=== PATIENT | female | born 1955 | race Caucasian/White ===

== ENCOUNTER → 2019-12-07 14:59 | Outpatient (CLI) | payer BC, SELFPAY ==
--- NOTE | 2019-12-07 15:17 | XR_ITS ---
PROCEDURE: XR CHEST 2V CLINICAL HISTORY: SOB Shortness of breath COMPARISON: No exams were available for comparison FINDINGS: There is mild cardiomegaly without failure. The lungs are clear without infiltrates, suspicious nodules, or pleural effusions. No acute bony abnormalities. IMPRESSION: No acute findings. Dictated by: Kenneth Strong MD 12/07/2019 18:25 Electronically signed by Kenneth Strong MD in [place] 12/07/2019 18:25
== END ==
PROVIDERS: PCP Family Medicine; Visit Provider Family Medicine
DX: R06.02 Shortness of breath (principal)
CPT/HCPCS: 71046

== ENCOUNTER → 2020-08-10 15:07 | Outpatient (CLI) | payer BC, SELFPAY ==
--- NOTE | 2020-08-10 15:16 | XR_ITS ---
PROCEDURE: XR CHEST PORTABLE CLINICAL HISTORY: COVID OUTPATIENT Cough and fatigue COMPARISON: CR XR CHEST 2V from 12/07/2019 FINDINGS: The cardiomediastinal silhouette and pulmonary vascularity are within normal limits. The lungs are clear without infiltrates, suspicious nodules, or pleural effusions. No acute bony abnormalities. IMPRESSION: No acute findings. Dictated by: Kenneth Strong MD 08/10/2020 15:44 Kenneth Storng MD in [place] 08/10/2020 15:44
== END ==
PROVIDERS: PCP Nurse Practitioner Family; Visit Provider Nurse Practitioner Family
DX: Z20.822 Contact with and (suspected) exposure to COVID-19 (principal); U07.1 COVID-19; R06.02 Shortness of breath
CPT/HCPCS: 71045; U0003

== ENCOUNTER 2020-08-14 14:35 | Observation (INO) | payer BC, SELFPAY ==
[2020-08-14] VITALS (8 sets, daily range): BP systolic 102–141; BP diastolic 52–89; PULSE 72–87; RESP 20–24; TEMP 36.7–36.9; O2SAT 94–96; BMI 52.0; BMI 40.8
--- NOTE | 2020-08-14 15:08 | XR_ITS ---
PROCEDURE: XR CHEST PORTABLE CLINICAL HISTORY: covid Cough and fever COMPARISON: CR XR CHEST 2V from 12/07/2019 CR XR CHEST PORTABLE from 08/10/2020 FINDINGS: There is mild cardiomegaly without failure. Multifocal small areas of patchy density in the right upper and right lower lobe are present consistent with pneumonia. No acute bony abnormalities. IMPRESSION: Small multifocal areas of right-sided pneumonia Dictated by: Kenneth Strong MD 08/14/2020 16:20 Kenneth Strong MD in [place] 08/14/2020 16:20
--- NOTE | 2020-08-14 15:13 | HMH.EDGENADL ---
ED Disposition Clinical Impression: Pneumonia due to COVID-19 virus, Hypoxia, Hypoglycemia Disposition: Admitted As Inpatient Condition on Discharge: Serious Referrals: Tejinder Roca MD [Primary Care Provider] - - Critical Care Critical Care Time: Yes Attestation: On , the high probability of a clinically significant, sudden or life threatening deterioration of the following system(s) required my full and direct attention, intervention and personal management. The time I documented below is in addition to time spent performing reported procedures but includes the following listed in this critical care notation. Total Critical Care Time: 30 Vital system(s) involved:: Metabolic Failure, Respiratory Failure My critical care processes included: Assessment & monitoring of V/S, Initial and Re-exams, Data Review/Interpretation, Coordinating Care, Medication Orders and management, Documentation Medical Decision Making - Ari Inquiry Pt receiving controlled substance: No Vital Signs: 08/14/20 14:36 08/14/20 15:31 08/14/20 16:01 Temperature 98.4 F Temperature Source Oral Pulse Rate [Right Brachial] 87 80 75 Respiratory Rate 20 Blood Pressure [Right Arm] 120/89 133/61 102/66 L Blood Pressure Mean [Right Arm] 99 85 78 Blood Pressure Source [Right Arm] Automatic Cuff Automatic Cuff Automatic Cuff Blood Pressure Position [Right Arm] Sitting Sitting Sitting 02 Sat by Pulse Oximetry 94 L 95 96 Oxygen Delivery Method Room Air Nasal Cannula Nasal Cannula Oxygen Flow Rate (LPM) 2 2 08/14/20 16:31 Temperature Temperature Source Pulse Rate [Right Brachial] 75 Respiratory Rate Blood Pressure [Right Arm] 127/55 L Blood Pressure Mean [Right Arm] 79 Blood Pressure Source [Right Arm] Automatic Cuff Blood Pressure Position [Right Arm] Sitting 02 Sat by Pulse Oximetry 96 Oxygen Delivery Method Nasal Cannula Oxygen Flow Rate (LPM) 2 - Lab Data Lab Results 08/14/20 15:10: WBC 4.9, RBC 4.36, Hgb 11.8 L, Hct 37.8, MCV 86.9, MCH 27.0, MCHC 31.1 L, RDW 16.2, Plt Count 324, MPV 7.7, Neut % (Auto) 73.1, Lymph % (Auto) 21.5, Solano % (Auto) 4.8, Eos % (Auto) 0.1, Baso % (Auto) 0.5, Neut # (Auto) 3.6, Lymph # (Auto) 1.1, Solano # (Auto) 0.2, Eos # (Auto) 0.0, Baso # (Auto) 0.0 08/14/20 15:10: Sodium 144, Potassium 3.8, Chloride 108 H, Carbon Dioxide 29, Anion Gap 10.8, BUN 21 H, Creatinine 0.90, Estimated Creat Clear 43, Estimated GFR 63, Est GFR ( Amer) 77, Glucose 38 L*, Calcium 9.2, Total Bilirubin 0.4, AST 27, ALT 14, Alkaline Phosphatase 69, Total Protein 7.7, Albumin 3.9, Globulin 3.8 H, Albumin/Globulin Ratio 1.0 L 08/14/20 15:10: Lactate < 0.5 L 08/14/20 15:10: Procalcitonin 0.078 Result diagrams: 08/14/20 15:10 08/14/20 15:10 Orders (Tests/Meds): ED MEDICATIONS Discontinued Medications Generic Name Dose Route Start Last Admin Trade Name Freq PRN Reason Stop Dose Admin Dextrose 50 ml 08/14/20 15:56 08/14/20 16:09 Dextrose 50% 50ml Syringe (Crash Cart) IVP 08/14/20 15:57 50 ml ONCE ONE Administration ORDERS Category Date Time Status Blood Culture Stat Micro 08/14/20 15:10 Received - Radiology Data #1 Image(s): Chest Image Reviewed: Yes I reviewed the patient's radiology image, Yes I have reviewed radiologist's interpretation PROCEDURE: XR CHEST PORTABLE CLINICAL HISTORY: covid Cough and fever COMPARISON: CR XR CHEST 2V from 12/07/2019 CR XR CHEST PORTABLE from 08/10/2020 FINDINGS: There is mild cardiomegaly without failure. Multifocal small areas of patchy density in the right upper and right lower lobe are present consistent with pneumonia. No acute bony abnormalities. IMPRESSION: Small multifocal areas of right-sided pneumonia Dictated by: Kenneth Strong MD 08/14/2020 16:20 Kenneth Strong MD in [place] 08/14/2020 16:20 - Physician Consults Physician Consulted: Vanna Time: 16:45 Reason -: Admission Comment/Response: Agrees to admit the giana
[2020-08-14 15:27] LABS: Basophils % 0.5 % (0.1-2.0); Eosinophils % 0.1 % (0.1-12.0); Hematocrit 37.8 % (37.0-47.0); Hemoglobin 11.8 g/dL (12.2-16.2); Lymphocytes # 1.1 K/mm3 (0.7-4.5); Lymphocytes % 21.5 % (10-50); Mean Corpuscular HGB Conc 31.1 g/dL (31.8-35.4); Mean Corpuscular Volume 86.9 fl (81-99); Mean Platelet Volume 7.7 fl (7.4-10.4); Monocytes # 0.2 K/mm3 (0.1-1.0); Monocytes % 4.8 % (1.7-9.3); Neutrophils # 3.6 K/mm3 (1.8-7.8); Neutrophils % 73.1 % (37.0-80.0); Platelet Count 324 K/mm3 (142-424); Red Blood Count 4.36 M/mm3 (4.20-5.40); Red Cell Distribution Width 16.2 % (11.5-17.5); White Blood Count 4.9 K/mm3 (4.8-10.8)
[2020-08-14 15:44] LABS: Chloride 108 mmol/L (98-107); Sodium 144 mmol/L (136-145)
[2020-08-14 15:45] LABS: Potassium 3.8 mmoL/L (3.5-5.1)
[2020-08-14 15:47] LABS: Alanine Aminotransferase 14 U/L (12-78); Albumin Level 3.9 g/dl (3.5-5.0); Alkaline Phosphatase 69 U/L (38-126); Anion Gap 10.8 mEq/L (5-15); Aspartate Amino Transferase 27 U/L (14-36); Bilirubin,Total 0.4 mg/dl (0.2-1.3); Blood Urea Nitrogen 21 mg/dl (7-17); Carbon Dioxide 29 mmol/L (22.0-30.0); Creatinine Clearance Estimated 43 mL/min (50-200); Estimated Glomerular Filt Rate 63 ml/min (>60); GFR (African American) 77 ML/MIN (>60); Globulin 3.8 g/dL (1.3-3.2); Total Protein,Serum 7.7 g/dl (6.3-8.2)
[2020-08-14 15:48] LABS: Calcium 9.2 mg/dl (8.4-10.2)
[2020-08-14 15:55] LABS: Lactic Acid < 0.5 mmol/L (0.7-2.1)
[2020-08-14 15:57] LABS: Glucose 38 mg/dl (74-100)
--- NOTE | 2020-08-14 15:59 | PC.NURSE ---
NotifiedMD of critical glucose. New orders given at this time
--- NOTE | 2020-08-14 16:22 | PC.NURSE ---
Dr Abelino silva.
[2020-08-14 16:32] LABS: Procalcitonin 0.078 ng/mL (0.0-2.0)
--- NOTE | 2020-08-14 16:37 | PC.NURSE ---
Dr Prabhakar returned call for Dr Roca.
--- NOTE | 2020-08-14 17:51 | PC.NURSE ---
called the floor to let them know pt was ready for admission
--- NOTE | 2020-08-14 18:15 | PC.NURSE ---
Pt arrived to the floor at this time.
--- NOTE | 2020-08-14 20:00 | PC.NURSE ---
upon arrival to floor fsbs checked, it was 46, rechecked as per protocol and it was 48. patient ate some manderin oranges she had brought from home. recheck of fsbs revealed it to be at 106. patient remained asymptmatic. md radiation control health physicist was relayed this with no new orders. patient also requesting her benzonotate to be reordered and md stated it was okay to order this and have protonix given tonight.
[2020-08-15] VITALS (7 sets, daily range): BP systolic 126–152; BP diastolic 64–94; PULSE 64–77; RESP 18–22; TEMP 36.2–36.7; O2SAT 90–95; BMI 40.5; BMI 40.4
--- NOTE | 2020-08-15 05:21 | PC.NURSE ---
Pt A&O x4 and has slept on and off through the night. Only c/o were of trouble sleeping for which pt requested tylenol and it was given per OCT. Pt has been on 3L NC and was titrated down to 2L. sats have been in the mid 90s. No c/o of trouble breathing. Lung sounds are diminished throughout with crackles in lower bases. Pt has been ambulating to the bathroom with stand-by assist and has tolerated well. Pt stated her biggest problem was anxiety and the fear that she will need to be intubated and become very ill due to her having COVID. Pt has tolerated diet well. VSS, call light in reach, no concerns at this time.
[2020-08-15 06:22] LABS: POC Glucose,Bedside 106 (70-110)
[2020-08-15 06:22] LABS: POC Glucose,Bedside 100 (70-110)
[2020-08-15 06:43] LABS: POC Glucose,Bedside 127 (70-110)
[2020-08-15 06:52] LABS: Basophils % 0.6 % (0.1-2.0); Hematocrit 35.3 % (37.0-47.0); Lymphocytes # 0.6 K/mm3 (0.7-4.5); Lymphocytes % 14.5 % (10-50); Mean Corpuscular HGB Conc 31.1 g/dL (31.8-35.4); Mean Corpuscular Hemoglobin 27.7 pg (27.0-31.2); Mean Corpuscular Volume 89.2 fl (81-99); Mean Platelet Volume 8.8 fl (7.4-10.4); Monocytes # 0.2 K/mm3 (0.1-1.0); Monocytes % 4.1 % (1.7-9.3); Neutrophils # 3.4 K/mm3 (1.8-7.8); Neutrophils % 80.8 % (37.0-80.0); Platelet Count 282 K/mm3 (142-424); Red Blood Count 3.96 M/mm3 (4.20-5.40); White Blood Count 4.2 K/mm3 (4.8-10.8)
--- NOTE | 2020-08-15 07:06 | HMH.HP ---
*Admission Date: 08/14/20 *Chief complaint: Shortness of breath *History of present illness: 64-year-old female with fibromyalgia and diabetes with neuropathy presented to the emergency department after being seen in the office for follow-up on diagnosis of COVID-19 infection. Patient was reporting increasing shortness of breath and on O2 sat in the office patient was 84% on room air. Patient was sent to the emergency department for a more rapid evaluation. In the ER patient had normal O2 sats on room air with the lowest recorded sat of 92%. However she continued to complain of shortness of breath and supplemental oxygen was applied which raised the patient's sats to the high 90s. Further work-up revealed small infiltrates in the right lung consistent with COVID-19 pneumonia. Patient was then admitted and has been started on remdesivir, dexamethasone. This morning she reports feeling about the same. She would like to get out of bed and sit in a recliner due to the neuropathy in her feet. Patient admitted to nursing staff she was very afraid of respiratory failure requiring intubation [facility] History I have reviewed the patient's past medical history: Yes Medical History: Reports:: Diabetes Mellitus Type 2 *Have you ever received a pneumonia vaccine?: Yes *Have you received a flu vaccine this season?: Yes Comment:: Diabetic neuropathy: Other Surgeries: Yes: Cholecystectomy, - *Social History Last grade of school completed: High school graduate Alcohol Intake: never *Occupational Status:: unemployed Housing: house Household Members: spouse, children *Travel in the last 8 weeks: None Family Hx:: Heart Attack, Hyperlipidemia, Hypertension Review of Systems - Constitutional Denies body ache(s), Denies chills, Denies lack of energy, Denies malaise - *Cardiovascular Denies chest pain, Denies chest pain at rest, Denies chest pain with activity - *Respiratory Reports shortness of breath, Reports shortness of breath with activity, Denies change in phlegm color, Denies chest congestion, Denies cough - *Gastrointestinal Denies abdominal pain, Denies belching, Denies loose stools - *Musculoskeletal Denies abnormal walking, Denies joint pain, Denies decreased muscle mass - Integumentary/Breasts Reports hair loss - Psychiatric Denies abnormal sleep pattern, Denies lack of enjoyment, Denies anxiety Meds Home Medications Medication Instructions Recorded Confirmed Type Benzonatate [Benzonatate 200mg Cap] 200 mg PO TID 08/14/20 08/14/20 History Ergocalciferol (Vitamin D2) 1,250 mcg PO WEEKLY 08/14/20 08/14/20 History [Vitamin D2] Fenofibrate Nanocrystallized 145 mg PO DAILY 08/14/20 08/14/20 History [Fenofibrate] Fexofenadine HCl [Barbra Allergy] 60 mg PO DAILY 08/14/20 08/14/20 History Fluticasone/Vilanterol [Breo 1 puff INHALATION DAILY 08/14/20 08/14/20 History Ellipta 200-25 Mcg INH] Furosemide [Furosemide 40MG tAB*] 40 mg PO BID 08/14/20 08/14/20 History Insulin Aspart Prot/Insuln Asp 80 units SQ BID 08/14/20 08/14/20 History [Novolog Mix 70/30 Flexpen 100 Units/mL 3mL] Pantoprazole Sodium 40 mg PO DAILY 08/14/20 08/14/20 History Potassium Chloride [Klor-con 20 20 meq PO DAILY 08/14/20 08/14/20 History mEq tablet] carvediloL [Carvedilol 25mg Tab] 25 mg PO BID 08/14/20 08/14/20 History Allergies Allergy/AdvReac Type Severity Reaction Status Date / Time Cefaclor Allergy Unknown Uncoded 07/21/17 14:38 Cephalosporin Allergy Unknown Uncoded 07/21/17 14:38 Exam Vital signs and Labs for Last 24 Hours: Temp Pulse Resp BP Pulse Ox 98.0 F 70 18 146/68 H 95 08/15/20 04:00 08/15/20 04:00 08/15/20 04:00 08/15/20 04:00 08/15/20 04:00 Laboratory Results - last 24 hr 08/14/20 15:10: WBC 4.9, RBC 4.36, Hgb 11.8 L, Hct 37.8, MCV 86.9, MCH 27.0, MCHC 31.1 L, RDW 16.2, Plt Count 324, MPV 7.7, Neut % (Auto) 73.1, Lymph % (Auto) 21.5, Dane % (Auto) 4.8, Eos % (Auto) 0.1, Baso %
[2020-08-15 07:28] LABS: Anion Gap 14.2 mEq/L (5-15); Blood Urea Nitrogen 17 mg/dl (7-17); Calcium 8.6 mg/dl (8.4-10.2); Carbon Dioxide 23 mmol/L (22.0-30.0); Chloride 108 mmol/L (98-107); Creatinine Clearance Estimated 54 mL/min (50-200); Estimated Glomerular Filt Rate 85 ml/min (>60); GFR (African American) 102 ML/MIN (>60); Glucose 130 mg/dl (74-100); Potassium 5.2 mmoL/L (3.5-5.1); Sodium 140 mmol/L (136-145)
--- NOTE | 2020-08-15 08:03 | PC.WOUNDNOTE ---
Wound Location: BLE Pain and/or tenderness Y/N: Tender, dry, scaly, edema
--- NOTE | 2020-08-15 08:05 | PC.WOUNDNOTE ---
Wound Location: coccyx Length: Width: Inflammation/swelling Y/N: Pain and/or tenderness Y/N: NO Color: Dark Purple Mann Red
--- NOTE | 2020-08-15 08:07 | PC.WOUNDNOTE ---
Wound Location: Under left breast Inflammation/swelling Y/N: Pain and/or tenderness Y/N: N Exudate: Seropurulent Purulent Color: Cloudy/milky Red Yellow Odor Y/N: Y
--- NOTE | 2020-08-15 08:11 | PC.WOUNDNOTE ---
Wound Location: ABD FOLD, Groin FOLDS Red/Excoriated Odor Y/N: y
--- NOTE | 2020-08-15 08:45 | HMH.PHAVTE ---
[facility] Pharmacy VTE Monitoring - Patient Demographics Admission date: 08/15/20 Report Date: 08/15/20 Time: 08:45 Allergies/Adverse Reactions: Patient Allergies Cephalosporins Allergy (Unknown, Verified 08/15/20 08:27) Unknown allergy reaction Height: 1.7 m Weight: 117.084 kg Patient Problems: Current Active Problems Pneumonia due to COVID-19 virus (Acute) Hypoxia (Acute) Hypoglycemia (Acute) Diabetes mellitus type 2, uncontrolled (Acute) Morbid obesity (Acute) Diabetic neuropathy (Acute) Fibromyalgia (Acute) - VTE Risk Labs: VTE Related Lab Results Hgb 11.0 g/dL (12.2-16.2) L 08/15/20 05:22 Hct 35.3 % (37.0-47.0) L 08/15/20 05:22 Plt Count 282 K/mm3 (142-424) 08/15/20 05:22 BUN 17 mg/dl (7-17) 08/15/20 05:22 Creatinine 0.70 mg/dl (0.52-1.04) D 08/15/20 05:22 Estimated Creat Clear 54 mL/min (50-200) 08/15/20 05:22 Was VTE Risk Assessment Performed: Yes VTE Score: 2 VTE Risk Level: Low Risk Clinical Trial Participant: No - Prophylaxis VTE Prophylaxis Ordered?: Yes Types of VTE Prophylaxis: TEDS Knee High, Pharmacological Pharmacologic Type: Enoxaparin
--- NOTE | 2020-08-15 11:46 | HMH.PHAINT ---
MEDICATION RECONCILIATION COMPLETED ON PATIENT USING EXTERNAL FILL HISTORY FORM PHARMACY AND LIST FROM MD OFFICE. -ORLANDO PARADAD
[2020-08-15 12:13] LABS: POC Glucose,Bedside 222 (70-110)
[2020-08-15 16:22] LABS: POC Glucose,Bedside 181 (70-110)
--- NOTE | 2020-08-15 19:43 | PC.NURSE ---
No acute changes on pt this afternoon. VSS. Continues on 2 L NC with exertional soa. CB in reach.
--- NOTE | 2020-08-15 19:45 | PC.NURSE ---
Bs x 4, alert and oriented and able to make needs known. S1,S2. Lungs cta/diminished. No c/o of pain.
[2020-08-15 21:40] LABS: POC Glucose,Bedside 223 (70-110)
[2020-08-16] VITALS: BP 142/71; PULSE 60; RESP 22; TEMP 36.8; O2SAT 95
[2020-08-16 04:00] VITALS: BP 136/63; PULSE 58; RESP 19; TEMP 36.6; O2SAT 96
[2020-08-16 05:32] VITALS: BMI 40.8
--- NOTE | 2020-08-16 05:56 | PC.NURSE ---
no acute changes since prior assessment, lungs diminished, remains on 2L NC with sats 95-96%, respirations 19-22, no complaints of SOA or chest pain, has ambulated to bathroom independently
[2020-08-16 06:48] LABS: POC Glucose,Bedside 121 (70-110)
--- NOTE | 2020-08-16 07:21 | HMH.DCSUM ---
General - General Admission date:: 08/14/20 Discharge date: 08/16/20 HPI HPI: 64-year-old female with fibromyalgia and diabetes with neuropathy presented to the emergency department after being seen in the office for follow-up on diagnosis of COVID-19 infection. Patient was reporting increasing shortness of breath and on O2 sat in the office patient was 84% on room air. Patient was sent to the emergency department for a more rapid evaluation. In the ER patient had normal O2 sats on room air with the lowest recorded sat of 92%. However she continued to complain of shortness of breath and supplemental oxygen was applied which raised the patient's sats to the high 90s. Further work-up revealed small infiltrates in the right lung consistent with COVID-19 pneumonia. Patient was then admitted and has been started on remdesivir, dexamethasone. This morning she reports feeling about the same. She would like to get out of bed and sit in a recliner due to the neuropathy in her feet. Patient admitted to nursing staff she was very afraid of respiratory failure requiring intubation Hospital Course Hospital Course: Patient was admitted and placed on supplemental oxygen and started on Covid protocol with Remdesivir, dexamethasone, nutritional supplementation. Patient maintained O2 sats above 90% with supplemental oxygen during her hospitalization. O2 sats were 95% at rest on supplemental oxygen at discharge. Patient's documented lowest oxygen saturation was 84% in my office on August 14. Patient was ambulating independently. Patient could participate in long conversations without evidence of dyspnea. Patient was stable and decision was made to discharge her home with oxygen support. Patient will follow-up in the office on an as-needed basis. She has been instructed to call the office should she feel like she is worsening. Patient voiced great fear over COVID-19 pneumonia related to respiratory failure. Questions were asked and answered to alleviate some of the patient's anxiety. Patient's diabetes was treated with sliding scale insulin at meals and at night. Patient voiced now 10-month history of shortness of breath of unknown etiology and plans on seeing pulmonology as an outpatient Objective Vital signs: Temp Pulse Resp BP Pulse Ox 97.9 F 58 L 19 136/63 96 08/16/20 04:00 08/16/20 04:00 08/16/20 04:00 08/16/20 04:00 08/16/20 04:00 no acute distress - *Routine Respiratory Exam Present: rales (Right base less audible than yesterday) - *Routine Cardiovascular Exam Present: RRR - *Routine Abdominal Exam Present: soft, normoactive bowel sounds. Absent: tenderness Results Labs on day of discharge: Labs from last 24 hours 08/16/20 08/15/20 08/15/20 06:28 21:00 16:13 Sodium Potassium Chloride Carbon Dioxide Anion Gap BUN Creatinine Estimated Creat Clear Estimated GFR Est GFR ( Amer) Glucose POC Glucose 121 H 223 H 181 H Calcium 08/15/20 08/15/20 11:52 05:22 Sodium 140 Potassium 5.2 H D Chloride 108 H Carbon Dioxide 23 D Anion Gap 14.2 BUN 17 Creatinine 0.70 D Estimated Creat Clear 54 Estimated GFR 85 Est GFR ( Amer) 102 D Glucose 130 H D POC Glucose 222 H Calcium 8.6 DS: Diagnosis - Discharge Diagnosis (1) Pneumonia due to COVID-19 virus Status: Acute (2) Diabetes mellitus type 2, uncontrolled Status: Acute (3) Morbid obesity Status: Acute (4) Diabetic neuropathy Status: Acute (5) Fibromyalgia Status: Acute Discharge Plan - Patient Discharge Instructions ACTIVITY: Continue current activity DIET: continue same diet Patient Instructions: Pneumonia-Adult, Hypoglycemia, DI for Pneumonia -- Adult, DI for Hypoglycemia, DI for Hypoxia, DI for COVID-19 (Suspected or Confirmed ), How to Care for Someone with COVID-19 - Follow up Plan Follow up with: Troy
[2020-08-16 08:00] VITALS: BP 133/70; PULSE 78; RESP 24; TEMP 36.6; O2SAT 92
[2020-08-16 08:45] LABS: Alanine Aminotransferase 19 U/L (12-78); Albumin Level 3.8 g/dl (3.5-5.0); Alkaline Phosphatase 69 U/L (38-126); Anion Gap 10.5 mEq/L (5-15); Aspartate Amino Transferase 29 U/L (14-36); Bilirubin,Total 0.5 mg/dl (0.2-1.3); Blood Urea Nitrogen 27 mg/dl (7-17); Calcium 9.3 mg/dl (8.4-10.2); Carbon Dioxide 29 mmol/L (22.0-30.0); Chloride 105 mmol/L (98-107); Creatinine Clearance Estimated 54 mL/min (50-200); Estimated Glomerular Filt Rate 63 ml/min (>60); GFR (African American) 77 ML/MIN (>60); Globulin 3.7 g/dL (1.3-3.2); Glucose 147 mg/dl (74-100); Potassium 4.5 mmoL/L (3.5-5.1); Sodium 140 mmol/L (136-145); Total Protein,Serum 7.5 g/dl (6.3-8.2)
[2020-08-16 08:53] LABS: POC Glucose,Bedside 46 (70-110)
[2020-08-16 08:53] LABS: POC Glucose,Bedside 48 (70-110)
--- NOTE | 2020-08-16 09:43 | SW/DCPLANNER ---
SET UP HOME 02 FOR THIS PATIENT WHO IS DISCHARGING HOME TODAY.. A PORTABLE TANK WILL BE DELIVERED TO HER ROOM PRIOR TO HER LEAVING...
[2020-08-16 11:28] LABS: POC Glucose,Bedside 168 (70-110)
[2020-08-16 12:00] VITALS: BP 126/72; PULSE 78; RESP 18; TEMP 36.6; O2SAT 98
== END 2020-08-16 14:09 | disposition home or self-care (01) ==
LOC: ER 15:59 → 2ND 17:09
PROVIDERS: Admitting Provider Emergency Medicine; Emergency Provider Emergency Medicine; PCP Family Medicine; Visit Provider Family Medicine
DX: U07.1 COVID-19 (principal); J12.82 Pneumonia due to coronavirus disease 2019; E11.40 Type 2 diabetes mellitus with diabetic neuropathy, unspecified; E11.65 Type 2 diabetes mellitus with hyperglycemia; E66.01 Morbid (severe) obesity due to excess calories; Z68.41 Body mass index [BMI] 40.0-44.9, adult; I10 Essential (primary) hypertension; Z79.4 Long term (current) use of insulin; Z79.51 Long term (current) use of inhaled steroids
CPT/HCPCS: 71045; 80048; 80053; 82962; 83605; 84145; 85025; 87040; 96374; 99285; G0378

== ENCOUNTER → 2021-03-08 12:24 | Outpatient (CLI) | payer BC, SELFPAY ==
--- NOTE | 2021-03-08 12:30 | XR_ITS ---
PROCEDURE: XR KNEE RT 3V CLINICAL INDICATION: RT ANTERIOR KNEE PAIN COMPARISON: No exams were available for comparison FINDINGS: No fracture or dislocation. No lytic or blastic change. There is normal mineralization. There are mild tricompartmental osteoarthritic changes. Well-circumscribed calcific density is present along medial femoral condyle measuring approximately 7 mm and could be the result of prior ligamentous injury or old avulsion. Small osteophytes are present at the tibial spines. A lucency is noted involving the central aspect of the medial femoral condyle at the intercondylar notch measuring 4 mm which could represent a small osteochondral defect. Other findings:None. IMPRESSION: There are mild tricompartmental osteoarthritic changes. Well-circumscribed calcific density is present along medial femoral condyle measuring approximately 7 mm and could be the result of prior ligamentous injury or old avulsion. A lucency is noted involving the central aspect of the medial femoral condyle at the intercondylar notch measuring 4 mm which could represent a small osteochondral defect Dictated by: Kenneth Strong MD 03/08/2021 13:12 Kenneth Strong MD in [place] 03/08/2021 13:12
== END ==
PROVIDERS: PCP Family Medicine; Visit Provider Nurse Practitioner Family
DX: M25.561 Pain in right knee (principal)
CPT/HCPCS: 73562

== ENCOUNTER → 2022-01-16 14:11 | Outpatient (CLI) | payer BC, MEDICARE, SELFPAY ==
--- NOTE | 2022-01-16 14:31 | CA_ITS ---
APPROVED REPORT EXAM: Comprehensive 2D, Doppler, and color-flow Echocardiogram Panel Sewer: Hattie Malhotra RVT Ht: 5 ft 6 in Wt: 263lbs BSA: 2.25 BP: 147/74 mmHg Indications: SOA,ABN EKG,DM,EDEMA,OBESITY,DM 2D Dimensions LVOT 2.25 cm (M/F) 1.5-2.5 LA Volume 50.20 mL LA Volume Index 22.41 mL/m2 (M/F) 16-34 M-Mode Dimensions RVDd 2.82 cm (0.9-2.6) LA Diam 4.62 cm (1.9-4.0) LVDd 5.19 cm (3.5-5.7) Ao Diam 2.91 cm (2.0-3.7) LVDs 3.62 cm (3.5-5.7) IVSd 1.03 cm (0.6-1.1) PWd 0.85 cm (0.6-1.1) EF (Teich) 57.20% FS 30.30% EDV (Teich) 128.90 mL ESV (Teich) 55.20 mL LV Diastology E Decel Time 227.00 (160-240 msec) E/A Ratio 0.9 MED E' 5.20 (< 7 cm/sec) E'/MED E' Ratio 17.02 (>14) LAT E' 8.80 (<10 cm/sec) E/LAT E' Ratio 10.06 (>14) Aortic Valve AO Peak GR. 6.80 mmHg Mitral Valve MV E Max Wilbur. 88.00 (40-130 cm/s) MV A Velocity 96.00 (40-130 cm/s) E/A Ratio 0.92 MV Decel. Time 227.00 (160-240 ms) MV PHT 66.00 ms Pulmonary Valve PV Peak Velocity 119.00 (50-150 cm/s) Tricuspid Valve TR P. Velocity 254.00 cm/s RAP Estimate 10.00 mmHg RVSP 35.80 mmHg Left Ventricle Left atrium is mildly Left ventricle is normal size, mild concentric left ventricular hypertrophy, estimated ejection fraction 55% with no regional wall motion abnormality, grade 1 diastolic dysfunction seen without tissue Doppler evidence of raise left atrial pressure. Right Ventricle Right atrium and right ventricle are mildly enlarged with normal contractility. Aortic Valve Aortic valve is minimally thickened and fibrosed, there is no aortic stenosis or aortic insufficiency. Mitral Valve Mitral valve leaflets are minimally thickened, there is mild mitral regurgitation. Tricuspid Valve Tricuspid grossly normal, there is mild tricuspid regurgitation, tricuspid regurgitation jet velocity is inadequate for calculation of the right ventricular systolic pressure. Pulmonic Valve Pulmonic valve is poorly visualized. Great Vessels Aortic root is normal size. Inferior vena cava is poorly visualized. Pericardium No significant pericardial effusion noted. Conclusion 1. Mild biatrial enlargement, normal left ventricular size, mild concentric left ventricular hypertrophy, estimated ejection fraction 55% with no regional wall motion abnormality, grade 1 diastolic dysfunction seen without tissue Doppler evidence of raise left atrial pressure. 2. Mildly enlarged right ventricle with normal contractility. 3. Mild mitral and tricuspid regurgitation. 4. No significant pericardial effusion. 5. Inferior vena cava is poorly visualized. Electronically signed by : Mode Moreira MD 01/17/2022 15:10:02
[2022-01-16 14:52] LABS: Basophils # 0.1 K/mm3 (0-0.2); Basophils % 0.6 % (0.1-2.0); Eosinophils # 0.2 K/mm3 (0.0-0.4); Eosinophils % 1.5 % (0.1-12.0); Hemoglobin 12.7 g/dL (12.2-16.2); Lymphocytes # 2.1 K/mm3 (0.7-4.5); Lymphocytes % 13.9 % (10-50); Mean Corpuscular HGB Conc 32.5 g/dL (31.8-35.4); Mean Corpuscular Hemoglobin 27.8 pg (27.0-31.2); Mean Corpuscular Volume 85.6 fl (81-99); Mean Platelet Volume 7.8 fl (7.4-10.4); Monocytes # 0.7 K/mm3 (0.1-1.0); Monocytes % 4.4 % (1.7-9.3); Neutrophils % 79.6 % (37.0-80.0); Platelet Count 513 K/mm3 (142-424); Red Blood Count 4.56 M/mm3 (4.20-5.40); Red Cell Distribution Width 16.4 % (11.5-17.5); White Blood Count 15.1 K/mm3 (4.8-10.8)
[2022-01-16 14:54] LABS: MANUAL DIFFERENTIAL MANUAL DIFFERENTIAL (MANUAL DIFF)
[2022-01-16 15:14] LABS: Lymphocytes % 12 % (10-50); Monocytes % 4 % (2-9); Neutrophils % 84 % (42-76); Total Cells Counted 100
[2022-01-16 15:16] LABS: Hypochromasia 1+
[2022-01-16 15:17] LABS: Platelet Estimate Slight Increase
[2022-01-16 15:26] LABS: Alanine Aminotransferase 16 U/L (12-78); Albumin Level 3.8 g/dl (3.5-5.0); Alkaline Phosphatase 70 U/L (38-126); Anion Gap 10.6 mEq/L (5-15); Aspartate Amino Transferase 20 U/L (14-36); Bilirubin,Unconjugated 0.4 mg/dL (0.0-1.1); Blood Urea Nitrogen 46 mg/dl (7-17); Calcium 9.5 mg/dl (8.4-10.2); Carbon Dioxide 33 mmol/L (22.0-30.0); Chloride 102 mmol/L (98-107); Cholesterol 153 mg/dl (140-200); Estimated Glomerular Filt Rate 45 ml/min (>60); GFR (African American) 55 ML/MIN (>60); Glucose 86 mg/dl (74-100); HDL Cholesterol 51 mg/dl (40-60); Potassium 4.6 mmoL/L (3.5-5.1); Sodium 141 mmol/L (136-145); Total Protein,Serum 6.7 g/dl (6.3-8.2); Triglycerides 95 mg/dl (30-150); VLDL Cholesterol 19 mg/dL (0-40)
[2022-01-16 15:29] LABS: Bilirubin,Indirect 0.1 mg/dL (0.0-0.9); Bilirubin,Total 0.1 mg/dl (0.2-1.3)
[2022-01-16 15:35] LABS: NT Pro Brain Natriuretic Pep. 113 pg/mL (0-125)
[2022-01-16 15:37] LABS: Direct LDL Cholesterol 72.56 mg/dL (100-129)
[2022-01-16 15:44] LABS: Free T4 (Free Thyroxine) 1.52 ng/dl (0.78-2.19)
[2022-01-16 15:57] LABS: Thyroid Stimulating Hormone 1.92 uIU/mL (0.465-4.68)
== END ==
PROVIDERS: Internal Medicine Cardiovascular Disease; PCP Family Medicine; Visit Provider Nurse Practitioner
DX: R06.00 Dyspnea, unspecified (principal); I50.9 Heart failure, unspecified; E11.65 Type 2 diabetes mellitus with hyperglycemia; E66.01 Morbid (severe) obesity due to excess calories; I63.9 Cerebral infarction, unspecified; Z82.49 Family history of ischemic heart disease and other diseases of the circulatory system; Z79.4 Long term (current) use of insulin; Z68.41 Body mass index [BMI] 40.0-44.9, adult
CPT/HCPCS: 36415; 80048; 80061; 80076; 83880; 84439; 84443; 85007; 85025; 93306

== ENCOUNTER → 2022-02-07 07:27 | Outpatient (CLI) | payer BC, SELFPAY | PROVIDERS: PCP Family Medicine; Visit Provider Internal Medicine | DX: R06.00 Dyspnea, unspecified (principal); I20.8 Other forms of angina pectoris; R94.31 Abnormal electrocardiogram [ECG] [EKG]; R60.9 Edema, unspecified; E11.65 Type 2 diabetes mellitus with hyperglycemia; E66.01 Morbid (severe) obesity due to excess calories; Z82.49 Family history of ischemic heart disease and other diseases of the circulatory system; Z79.4 Long term (current) use of insulin; Z68.41 Body mass index [BMI] 40.0-44.9, adult | CPT/HCPCS: 78452; 93017; A9502; J2785 ==

== ENCOUNTER → 2022-02-14 08:47 | Outpatient (CLI) | payer BC, SELFPAY ==
--- NOTE | 2022-02-14 09:20 | PC.NURSE ---
PFT completed without incident. Pt given Albuterol 0.083% via HHN, per protocol, Pt tolerated tx well.
[2022-02-14 11:02] LABS: Anion Gap 11.7 mEq/L (5-15); Blood Urea Nitrogen 23 mg/dl (7-17); Calcium 9.5 mg/dl (8.4-10.2); Carbon Dioxide 29 mmol/L (22.0-30.0); Chloride 105 mmol/L (98-107); Estimated Glomerular Filt Rate 63 ml/min (>60); GFR (African American) 76 ML/MIN (>60); Glucose 114 mg/dl (74-100); Potassium 4.7 mmoL/L (3.5-5.1); Sodium 141 mmol/L (136-145)
== END ==
PROVIDERS: Internal Medicine; PCP Family Medicine; Visit Provider Nurse Practitioner Family
DX: R06.00 Dyspnea, unspecified (principal); R60.9 Edema, unspecified; R94.31 Abnormal electrocardiogram [ECG] [EKG]; Z82.49 Family history of ischemic heart disease and other diseases of the circulatory system
CPT/HCPCS: 36415; 80048; 94060; 94726; 94729

== ENCOUNTER → 2022-02-17 08:37 | Outpatient (CLI) | payer BC, SELFPAY ==
--- NOTE | 2022-02-17 08:37 | CT_ITS ---
FINAL REPORT TECHNIQUE: Then section axial CT images of the chest were obtained with contrast. Three-D reformatted images were also obtained.This study was performed with techniques to keep radiation doses as low as reasonably achievable (ALARA). Individualized dose reduction techniques using automated exposure control or adjustment of mA and/or kV according to the patient''s size were employed. CLINICAL HISTORY: dyspnea FINDINGS: There are bilateral thyroid nodules measuring up to 15 mm on the left. There is no evidence of pulmonary embolism. There is no evidence of thoracic aortic aneurysm or dissection. There is no evidence of mediastinal or hilar mass or adenopathy. There is no evidence of pulmonary mass or suspicious nodule. There is mild bilateral atelectasis or scarring. Limited images of the upper abdomen are unremarkable. IMPRESSION: 1. No evidence of pulmonary embolism. 2. No pulmonary mass or localized inflammatory process. 3. Bilateral thyroid nodules. Consider thyroid ultrasound. Reviewed, Interpreted and Dictated by Rafael Wu III, MD Transcribed by Win Solis Authenticated and . [facility]
== END ==
PROVIDERS: PCP Family Medicine; Visit Provider Nurse Practitioner Family
DX: R06.00 Dyspnea, unspecified (principal); E11.65 Type 2 diabetes mellitus with hyperglycemia; R94.31 Abnormal electrocardiogram [ECG] [EKG]; Z82.49 Family history of ischemic heart disease and other diseases of the circulatory system; Z79.4 Long term (current) use of insulin
CPT/HCPCS: 71275; Q9967

== ENCOUNTER → 2022-03-11 09:20 | Outpatient (CLI) | payer BC, SELFPAY ==
[2022-03-11 09:55] LABS: Chloride 104 mmol/L (98-107)
[2022-03-11 09:56] LABS: Potassium 3.7 mmoL/L (3.5-5.1); Sodium 140 mmol/L (136-145)
[2022-03-11 09:59] LABS: Anion Gap 7.7 mEq/L (5-15); Blood Urea Nitrogen 31 mg/dl (7-17); Calcium 9.1 mg/dl (8.4-10.2); Carbon Dioxide 32 mmol/L (22.0-30.0); Estimated Glomerular Filt Rate 50 ml/min (>60); GFR (African American) 60 ML/MIN (>60); Glucose 138 mg/dl (74-100)
== END ==
PROVIDERS: PCP Family Medicine; Visit Provider Internal Medicine
DX: R06.00 Dyspnea, unspecified (principal); I20.8 Other forms of angina pectoris; M79.7 Fibromyalgia; R60.9 Edema, unspecified; R94.31 Abnormal electrocardiogram [ECG] [EKG]; E11.65 Type 2 diabetes mellitus with hyperglycemia; E66.01 Morbid (severe) obesity due to excess calories; Z68.41 Body mass index [BMI] 40.0-44.9, adult; Z79.4 Long term (current) use of insulin; Z82.49 Family history of ischemic heart disease and other diseases of the circulatory system
CPT/HCPCS: 36415; 80048

== ENCOUNTER → 2022-03-24 11:55 | Outpatient (CLI) | payer BC, SELFPAY ==
[2022-03-24 12:47] LABS: Anion Gap 10.1 mEq/L (5-15); Blood Urea Nitrogen 52 mg/dl (7-17); Calcium 9.2 mg/dl (8.4-10.2); Carbon Dioxide 32 mmol/L (22.0-30.0); Chloride 102 mmol/L (98-107); Estimated Glomerular Filt Rate 50 ml/min (>60); GFR (African American) 60 ML/MIN (>60); Glucose 135 mg/dl (74-100); Potassium 4.1 mmoL/L (3.5-5.1); Sodium 140 mmol/L (136-145)
[2022-03-24 12:56] LABS: NT Pro Brain Natriuretic Pep. 162 pg/mL (0-125)
== END ==
PROVIDERS: PCP Family Medicine; Visit Provider Internal Medicine
DX: R06.00 Dyspnea, unspecified (principal); R00.2 Palpitations; I20.8 Other forms of angina pectoris; E11.649 Type 2 diabetes mellitus with hypoglycemia without coma; E66.01 Morbid (severe) obesity due to excess calories; R60.9 Edema, unspecified; R94.31 Abnormal electrocardiogram [ECG] [EKG]; Z82.49 Family history of ischemic heart disease and other diseases of the circulatory system; Z79.4 Long term (current) use of insulin; Z68.41 Body mass index [BMI] 40.0-44.9, adult
CPT/HCPCS: 36415; 80048; 83880

== ENCOUNTER → 2022-05-09 12:16 | Outpatient (CLI) | payer BC, SELFPAY ==
[2022-05-09 13:34] LABS: Chloride 98 mmol/L (98-107); Sodium 143 mmol/L (136-145)
[2022-05-09 13:37] LABS: Alanine Aminotransferase 15 U/L (12-78); Albumin Level 4.2 g/dl (3.5-5.0); Albumin/Globulin Ratio 1.2 (1.1-1.8); Alkaline Phosphatase 81 U/L (38-126); Aspartate Amino Transferase 22 U/L (14-36); Bilirubin,Total 0.2 mg/dl (0.2-1.3); Blood Urea Nitrogen 35 mg/dl (7-17); Calcium 9.3 mg/dl (8.4-10.2); Carbon Dioxide 33 mmol/L (22.0-30.0); Estimated Glomerular Filt Rate 41 ml/min (>60); GFR (African American) 50 ML/MIN (>60); Globulin 3.5 g/dL (1.3-3.2); Glucose 131 mg/dl (74-100); Total Protein,Serum 7.7 g/dl (6.3-8.2)
[2022-05-09 13:45] LABS: NT Pro Brain Natriuretic Pep. 197 pg/mL (0-125)
[2022-05-09 14:05] LABS: Anion Gap 16.4 mEq/L (5-15); Potassium 4.4 mmoL/L (3.5-5.1)
== END ==
PROVIDERS: Internal Medicine Cardiovascular Disease; PCP Family Medicine
DX: I42.8 Other cardiomyopathies (principal)
CPT/HCPCS: 80053; 83880

== ENCOUNTER → 2022-07-23 14:55 | Outpatient (CLI) | payer BC, SELFPAY ==
--- NOTE | 2022-07-23 14:55 | CT_ITS ---
FINAL REPORT TECHNIQUE: Axial images were obtained from the lung apex to the mid abdomen by computed tomography. Thin section axial images of the chest were obtained by computed tomography. High-resolution technique was performed with inspiration, expiration, and prone imaging. CLINICAL HISTORY: . SOA COMPARISON: 02/17/2022 FINDINGS: There are bilateral thyroid nodules which are stable. Largest nodule on the left measures 13 mm. There is no axillary adenopathy. There is no hilar or mediastinal adenopathy. Heart size is normal. There is no pericardial or pleural effusion. Limited images of the upper abdomen are unremarkable. There is no evidence of emphysema or interstitial lung disease. There are several small nodules including a right lower lobe nodule measuring 5 mm which is stable. No new mass or nodule is identified. IMPRESSION: Several small nodules, stable from prior. Bilateral thyroid nodules, stable. Reviewed, Interpreted and Dictated by Rafael Wu III, MD Transcribed by Margaret Centeno Authenticated and [facility]
== END ==
PROVIDERS: PCP Family Medicine; Visit Provider Internal Medicine Pulmonary Disease
DX: J84.9 Interstitial pulmonary disease, unspecified (principal)
CPT/HCPCS: 71250

== ENCOUNTER → 2022-10-14 09:40 | Outpatient (CLI) | payer BC, SELFPAY | PROVIDERS: PCP Family Medicine; Visit Provider Internal Medicine Pulmonary Disease | DX: R06.09 Other forms of dyspnea (principal) | CPT/HCPCS: 94060; 94618; 94726; 94729 ==

== ENCOUNTER → 2023-01-21 15:02 | Outpatient (CLI) | payer BC, SELFPAY ==
[2023-01-21 15:52] LABS: Chloride 103 mmol/L (98-107); Potassium 4.1 mmoL/L (3.5-5.1); Sodium 143 mmol/L (136-145)
[2023-01-21 15:54] LABS: Blood Urea Nitrogen 36 mg/dl (7-17); Estimated Glomerular Filt Rate 38 ml/min (>60); GFR (African American) 46 ML/MIN (>60)
[2023-01-21 15:55] LABS: Alanine Aminotransferase 19 U/L (12-78); Albumin Level 3.8 g/dl (3.5-5.0); Albumin/Globulin Ratio 1.2 (1.1-1.8); Alkaline Phosphatase 76 U/L (38-126); Anion Gap 16.1 mEq/L (5-15); Aspartate Amino Transferase 21 U/L (14-36); Bilirubin,Total 0.2 mg/dl (0.2-1.3); Calcium 8.9 mg/dl (8.4-10.2); Carbon Dioxide 28 mmol/L (22.0-30.0); Globulin 3.2 g/dL (1.3-3.2); Glucose 89 mg/dl (74-100)
[2023-01-21 16:03] LABS: NT Pro Brain Natriuretic Pep. 254 pg/mL (0-125)
== END ==
PROVIDERS: PCP Family Medicine; Visit Provider Internal Medicine Cardiovascular Disease
DX: I42.8 Other cardiomyopathies (principal)
CPT/HCPCS: 36415; 80053; 83880

== ENCOUNTER → 2023-03-13 12:16 | Outpatient (CLI) | payer BC, SELFPAY ==
[2023-03-13 13:40] LABS: Chloride 102 mmol/L (98-107); Potassium 4.5 mmoL/L (3.5-5.1); Sodium 141 mmol/L (136-145)
[2023-03-13 13:43] LABS: Anion Gap 13.5 mEq/L (5-15); Blood Urea Nitrogen 38 mg/dl (7-17); Carbon Dioxide 30 mmol/L (22.0-30.0); Estimated Glomerular Filt Rate 45 ml/min (>60); GFR (African American) 54 ML/MIN (>60); Glucose 115 mg/dl (74-100)
[2023-03-13 13:44] LABS: Calcium 9.9 mg/dl (8.4-10.2)
== END ==
PROVIDERS: PCP Family Medicine; Visit Provider Internal Medicine Cardiovascular Disease
DX: I50.32 Chronic diastolic (congestive) heart failure (principal)
CPT/HCPCS: 36415; 80048